=== PATIENT | male | born 1975 | race Caucasian/White ===

== ENCOUNTER 2019-11-04 06:56 | Day surgery (SDC) | payer BC, OTHER ==
[~2019-11-04 06:56] MED LIST: Lactated Ringers 1,000 ML IV SCH; Sodium Chloride 0.9% 10 ML Syringe FLUSH PRN
[2019-11-04] MEDS ORDERED: Ketorolac 30 MG/ML SDV IVPUSH ONE (06:57)
[2019-11-04] MEDS ORDERED: Midazolam 1 MG/ML 2 ML SDV IV ONE (06:57)
[2019-11-04] MEDS ORDERED: Lactated Ringers 1,000 ML IV ONE (06:57)
[2019-11-04] MEDS ORDERED: Propofol 200 MG/20 ML SDV IV ONE (06:57)
[2019-11-04] MEDS ORDERED: Succinylcholine 200 MG/10 ML MDV IV ONE (06:57)
[2019-11-04] MEDS ORDERED: fentaNYL 100 MCG/2 ML SDV IV ONE (06:57)
[2019-11-04] MEDS ORDERED: Glycopyrrolate 0.2 MG/ML 5 ML MDV IV ONE (06:57)
[2019-11-04] MEDS ORDERED: Dexamethasone 4 MG/ML 5 ML MDV IVPUSH ONE (06:57)
[2019-11-04] MEDS ORDERED: cefOXitin 1 GM Vial IV ONE (06:57)
[2019-11-04] MEDS ORDERED: Lidocaine 2% 5 ML SDV INJECT ONE (06:57)
[2019-11-04] MEDS ORDERED: Ondansetron 4 MG/2 ML SDV IVPUSH ONE (06:57)
[2019-11-04] MEDS ORDERED: Bupivacaine 0.5% 30 ML SDV ONE (08:21)
[2019-11-04] MEDS ORDERED: Lidocaine 1% with EPINEPHrine 1:100,000 20 ML MDV ONE (08:21)
[2019-11-04] MEDS ORDERED: Acetaminophen/HYDROcodone 325-5 MG Tab PO PRN (09:01)
--- NOTE | 2019-11-04 09:01 | PCM.OPNOTE ---
- General Post-Op/Procedure Note Date of Surgery/Procedure: 11/04/19 Operative Procedure(s): hemorrhoidectomy Findings: left lateral right post grade 2 hemorrhoids Pre Op Diagnosis: internal hemorrhoids Post-Op Diagnosis: left lateral right post grade 2 hemorrhoids Anesthesia Technique: General ET Tube, Local (8 ml 1 % lido with epi/0.5% buvipicaine) Primary Surgeon: Arias Quesada Anesthesia Provider: Valentino Soto Pathology: hemorrhoids Complications: None Condition: Good Free Text/Narrative:: see dictation
--- NOTE | 2019-11-04 12:58 | OR ---
DATE OF OPERATION: 11/04/2019 SURGEON: Arias Quesada MD PROCEDURE PERFORMED: Hemorrhoidectomy. PREOPERATIVE DIAGNOSIS: Grade 2 internal hemorrhoids. POSTOPERATIVE DIAGNOSIS: Grade 2 internal hemorrhoids. INDICATIONS FOR PROCEDURE: This is a 43-year-old white male who has had some issues with bleeding hemorrhoids. He has had several columns that have been refractory to banding. He has been offered and accepted a hemorrhoidectomy. INTRAOPERATIVE FINDINGS: Grade 2 hemorrhoids are noted in the left lateral and right posterior columns, and a total of 8 mL of 1:1 mixture of 1% lidocaine with epinephrine and 0.5% bupivacaine was used to infiltrate the bases of our hemorrhoids. DESCRIPTION OF OPERATION: After an excellent general anesthetic was administered with the endotracheal tube and the patient was placed in prone carline- knife position, his buttocks were then taped apart. He was prepped and draped in the usual sterile manner. Digital rectal exam was performed. No marked abnormality was noted. The anal speculum was inserted, and the anus was evaluated. This revealed grade 2 hemorrhoids in the left lateral and right posterior column positions with the left being much larger than the right. Our attention was first turned to the left lateral one. Base of the hemorrhoid tissue was infiltrated with a 1:1 mixture of 1% lidocaine with epinephrine and 0.5% bupivacaine. Underlying hemorrhoid was then grasped, and the skin and mucosa were incised with a #15 scalpel blade. Using Metzenbaum scissors, the hemorrhoid was dissected free from the underlying tissue with care being taken not to injure the underlying sphincter muscle. Coming out to the apex of the hemorrhoid column, this was clamped, hemorrhoid tissue was divided and then passed off the field. A suture-ligature of 2-0 Vicryl was then used to suture the stump closed. Clamp was removed and the mucosa was then approximated with a running 2-0 Vicryl with the underlying muscularis layer being incorporated in our stitch, and this was carried out into the anoderm and the suture was tied. Process was repeated for the right posterior column, again infiltrating with more local and making our incision with a #15 scalpel blade, again using the Metzenbaum scissors to dissect the hemorrhoid tissue free. Again, the apex was clamped and suture-ligated with a 2-0 Vicryl tie. The mucosa was then approximated incorporating the muscularis layer with a running 2-0 Vicryl. Area was irrigated and Avitene Gelfoam was then coated with bacitracin and inserted into the anus after demonstrating excellent hemostasis. Dressing was applied. The patient was taken to recovery room. Estimated blood loss was approximately 10 mL. /[id number] /MODL
== END 2019-11-04 11:15 | disposition home or self-care (01) ==
LOC: FB.SDS 06:56
PROVIDERS: ATTEND Surgery
DX: K64.1 Second degree hemorrhoids (principal); K21.9 Gastro-esophageal reflux disease without esophagitis; Z91.048 Other nonmedicinal substance allergy status; Z91.09 Other allergy status, other than to drugs and biological substances; Z79.899 Other long term (current) drug therapy; Z79.51 Long term (current) use of inhaled steroids
CPT/HCPCS: A9270-GY; J0330; J0694; J1100; J1885; J2001; J2250; J2405; J2704; J3010; J3490; J7120

== ENCOUNTER 2019-11-05 15:44 | Inpatient (IN) | payer OTHER ==
[2019-11-05] MEDS ORDERED: Naloxone 0.4 MG/ML SDV IVPUSH PRN (17:07)
[2019-11-05] MEDS: fentaNYL/Normal Saline 300 MCG/30 ML PCA Vial IV PRN (17:40)
[2019-11-05] MEDS: Sodium Chloride 0.9% 1,000 ML IV SCH (17:52)
[2019-11-05] MEDS: Sodium Chloride 0.9% 10 ML Syringe FLUSH PRN ×3 (18:00→20:58)
[2019-11-05] MEDS ORDERED: Ondansetron 4 MG/2 ML SDV IVPUSH PRN (18:17)
[2019-11-05] MEDS ORDERED: Albuterol 8 GM Inhaler INH PRN (19:24)
[2019-11-05] MEDS: Docusate Sodium 100 MG Cap PO SCH (20:15)
[2019-11-05] MEDS: Diazepam 5 MG Tab PO SCH (20:15)
[2019-11-05] MEDS: Ketorolac 30 MG/ML SDV IVPUSH PRN (20:58)
[2019-11-06] MEDS: fentaNYL/Normal Saline 300 MCG/30 ML PCA Vial IV PRN ×2 (02:02→12:18)
[2019-11-06] MEDS: Sodium Chloride 0.9% 1,000 ML IV SCH (06:59)
[2019-11-06] MEDS: Ketorolac 30 MG/ML SDV IVPUSH PRN ×2 (07:04→16:20)
[2019-11-06] MEDS ORDERED: FLUTICASONE PROPIONATE SCH (09:00)
[2019-11-06] MEDS: FLUoxetine 20 MG Cap PO SCH (09:39)
[2019-11-06] MEDS: Cetirizine 10 MG Tab PO SCH (09:39)
[2019-11-06] MEDS: Fluticasone Propionate Nasal Spray 16 GM Bottle NASBOTH SCH (09:40)
[2019-11-06] MEDS: Docusate Sodium 100 MG Cap PO SCH ×2 (09:40→21:51)
[2019-11-06] MEDS: Diazepam 5 MG Tab PO SCH ×3 (09:47→21:51)
--- NOTE | 2019-11-06 10:08 | PCM.SURGPN ---
- General Info Date of Service: 11/06/19 POD#: 2 Functional Status: Reports: Tolerating Diet - Review of Systems Pulmonary: Reports: No Symptoms Cardiovascular: Reports: No Symptoms - Patient Data Vitals - Most Recent: Last Vital Signs Temp 98.0 F 11/06/19 03:00 Pulse 45 L 11/06/19 03:00 Resp 16 11/06/19 03:00 BP 110/62 11/06/19 03:00 Pulse Ox 98 11/06/19 03:00 Weight - Most Recent: 130.589 kg I&O - Last 24 Hours: Intake & Output 11/05/19 11/06/19 11/06/19 22:59 06:59 14:59 Intake Total 1563 Output Total 2250 1600 Balance -687 -1600 Med Orders - Current: Current Medications Albuterol (Ventolin Hfa) 0 gm INH Q4H PRN PRN Reason: Shortness of Breath Cetirizine HCl (Zyrtec) 10 mg PO DAILY [facility] Last Admin: 11/06/19 09:39 Dose: 10 mg Diazepam (Valium.) 5 mg PO TID [facility] Last Admin: 11/06/19 09:47 Dose: 5 mg Docusate Sodium (Colace) 100 mg PO BID [facility] Last Admin: 11/06/19 09:40 Dose: 100 mg Fentanyl Citrate (Fentanyl In Ns 300 Mcg/30 Ml Lithopone Mill Worker) 0 mcg IV ASDIRECTED PRN; Protocol PRN Reason: Pain Last Admin: 11/06/19 02:02 Dose: 300 mcg Fexofenadine HCl (Peyton) 60 mg PO DAILY [facility] Last Admin: 11/06/19 09:38 Dose: 60 mg Fluoxetine HCl (Prozac) 60 mg PO DAILY [facility] Last Admin: 11/06/19 09:39 Dose: 60 mg Fluticasone Propionate (Flonase) 0 gm NASBOTH DAILY [facility] Last Admin: 11/06/19 09:40 Dose: 2 inhalation Sodium Chloride (Normal Saline) 1,000 mls @ 75 mls/hr IV ASDIRECTED [facility] Last Admin: 11/06/19 06:59 Dose: 75 mls/hr Ketorolac Tromethamine (Toradol) 30 mg IVPUSH Q8H PRN PRN Reason: Pain Stop: 11/10/19 17:11 Last Admin: 11/06/19 07:04 Dose: 30 mg Naloxone HCl (Narcan) 0.4 mg IVPUSH Q2M PRN PRN Reason: Respiratory Distress Ondansetron HCl (Zofran) 4 mg IVPUSH Q4H PRN PRN Reason: Nausea/Vomiting Sodium Chloride (Saline Flush) 10 ml FLUSH ASDIRECTED PRN PRN Reason: Keep Vein Open Last Admin: 11/05/19 20:58 Dose: 10 ml Discontinued Medications Non-Formulary Medication (Fluticasone Propionate [Flonase]) 2 spray .XX DAILY [facility] - Exam Wound/Incisions: Drainage Lungs: Clear to Auscultation, Normal Respiratory Effort Cardiovascular: Regular Rate, Regular Rhythm GI/Abdominal Exam: Normal Bowel Sounds, Soft Skin: Warm, Dry, Intact Sepsis Event Note - Evaluation Sepsis Screening Result: No Definite Risk - Focused Exam Vital Signs: Vital Signs Temp Pulse Resp BP Pulse Ox 11/06/19 03:00 98.0 F 45 L 16 110/62 98 Date Exam was Performed: 11/06/19 Time Exam was Performed: 10:05 - Problem List & Annotations (1) Post-op pain SNOMED Code(s): 773411571 Code(s): G89.18 - OTHER ACUTE POSTPROCEDURAL PAIN Status: Acute Current Visit: Yes - Problem List Review Problem List Initiated/Reviewed/Updated: Yes - My Orders Last 24 Hours: Active Orders 24 hr Category Date Time Status Patient Status [ADT] Routine ADT 11/05/19 17:05 Active Antiembolic Devices [RC] .Routine Care 11/05/19 17:05 Active Cardiac Monitoring [RC] .As Directed Care 11/05/19 17:07 Active Communication Order [RC] STAT Care 11/05/19 17:07 Active Coley Catheter Insertion [Insert Urinary Catheter] [OM. Care 11/05/19 17:15 Ordered PC] Q24H Notify Provider [RC] PRN Care 11/05/19 17:07 Active DEBLOCKER Record [RC] PER UNIT ROUTINE Care 11/05/19 17:07 Active Pulse Oximetry [RC] CONTINUOUS Care 11/05/19 17:07 Active Pulse Oximetry [RC] PRN Care 11/05/19 17:05 Active Urinary Catheter Assessment [RC] QSHIFT Care 11/05/19 17:09 Active VTE/DVT Education [RC] Click to Edit Care 11/05/19 17:05 Active Vital Signs [RC] Q4H Care 11/05/19 17:05 Active Regular Diet [DIET] Diet 11/05/19 Dinner Active Albuterol [Ventolin HFA] Med 11/05/19 19:24 Active 0 gm INH Q4H PRN Cetirizine [ZyrTEC] Med 11/06/19 09:00 Active 10 mg PO DAILY Docusate Sodium [Colace] Med 11/05/19 21:00 Active 100 mg PO BID FLUoxetine [PROzac] Med 11/06/19 09:00 Active 60 mg PO DAILY Fexofenadine [Peyton] Med 11/06/19 09:00 Active 60 mg PO DAILY Fluticasone Propionate [Flonase] Med 11/06/19 09:00 Active 0 gm NASBOTH DAILY Ketorolac [Toradol] Med 11/05/19 17:11 Active 30 mg IVPUSH Q8H PRN Naloxone [Narcan] Med 11/05/19 17:07 Active 0.4 mg IVPUSH Q2M PRN Ondansetron [Zofran] Med 11/05/19 18:17 Active 4 mg IVPUSH Q4H PRN Sodium Chloride 0.9% [Normal Saline] 1,000 ml Med 11/05/19 17:30 Active IV ASDIRECTED Sodium Chloride 0.9% [Saline Flush] Med 11/05/19 17:50 Active 10 ml FLUSH ASDIRECTED PRN diazePAM [Valium] Med 11/05/19 21:00 Active 5 mg PO TID fentaNYL/Normal Saline [fentaNYL in NS 300 MCG/30 ML Med 11/05/19 17:07 Active DEBLOCKER] See Protocol IV ASDIRECTED PRN DVT/VTE Prophylaxis Reflex [OM.PC] Per Unit Routine Oth 11/05/19 17:05 Ordered Medication Discontinuation Instructions [OM.PC] Stat Oth 11/05/19 17:07 Ordered Sitz Bath [OM.PC] Routine Oth 11/05/19 17:10 Ordered Resuscitation Status Routine Resus Stat 11/05/19 17:04 Ordered Medication Orders Albuterol (Ventolin Hfa) 0 gm INH Q4H PRN PRN Reason: Shortness of Breath Cetirizine HCl (Zyrtec) 10 mg PO DAILY [facility] Last Admin: 11/06/19 09:39 Dose: 10 mg Diazepam (Valium.) 5 mg PO TID [facility] Last Admin: 11/06/19 09:47 Dose: 5 mg Admin: 11/05/19 20:15 Dose: 5 mg Docusate Sodium (Colace) 100 mg PO BID [facility] Last Admin: 11/06/19 09:40 Dose: 100 mg Admin: 11/05/19 20:15 Dose: 100 mg Fentanyl Citrate (Fentanyl In Ns 300 Mcg/30 Ml Lithopone Mill Worker) 0 mcg IV ASDIRECTED PRN; Protocol PRN Reason: Pain Last Admin: 11/06/19 02:02 Dose: 300 mcg Admin: 11/05/19 17:40 Dose: 300 mcg Fexofenadine HCl (Peyton) 60 mg PO DAILY [facility] Last Admin: 11/06/19 09:38 Dose: 60 mg Fluoxetine HCl (Prozac) 60 mg PO DAILY [facility] Last Admin: 11/06/19 09:39 Dose: 60 mg Fluticasone Propionate (Flonase) 0 gm NASBOTH DAILY [facility] Last Admin: 11/06/19 09:40 Dose: 2 inhalation Sodium Chloride (Normal Saline) 1,000 mls @ 75 mls/hr IV ASDIRECTED [facility] Last Admin: 11/06/19 06:59 Dose: 75 mls/hr Infusion: 11/06/19 06:59 Dose: 75 mls/hr Admin: 11/05/19 17:52 Dose: 75 mls/hr Ketorolac Tromethamine (Toradol) 30 mg IVPUSH Q8H PRN PRN Reason: Pain Stop: 11/10/19 17:11 Last Admin: 11/06/19 07:04 Dose: 30 mg Admin: 11/05/19 20:58 Dose: 30 mg Naloxone HCl (Narcan) 0.4 mg IVPUSH Q2M PRN PRN Reason: Respiratory Distress Ondansetron HCl (Zofran) 4 mg IVPUSH Q4H PRN PRN Reason: Nausea/Vomiting Sodium Chloride (Saline Flush) 10 ml FLUSH ASDIRECTED PRN PRN Reason: Keep Vein Open Last Admin: 11/05/19 20:58 Dose: 10 ml Admin: 11/05/19 18:25 Dose: 10 ml Admin: 11/05/19 18:00 Dose: 10 ml - Assessment Assessment (Free Text/Narrative):: stable exam - Plan Plan (Free Text/Narrative):: will continue coley will dc tele Pulse ox checks with vitals. ambulate decrease IVF rate
[2019-11-06] MEDS: Sodium Chloride 0.9% 10 ML Syringe FLUSH PRN (16:24)
[2019-11-07] MEDS: Ketorolac 30 MG/ML SDV IVPUSH PRN ×2 (01:08→15:35)
[2019-11-07] MEDS: Sodium Chloride 0.9% 10 ML Syringe FLUSH PRN (01:09)
[2019-11-07] MEDS: fentaNYL/Normal Saline 300 MCG/30 ML PCA Vial IV PRN ×2 (01:13→13:17)
--- NOTE | 2019-11-07 07:22 | PCM.SURGPN ---
- General Info Date of Service: 11/07/19 POD#: 3 Functional Status: Reports: Pain Controlled, Tolerating Diet, Ambulating - Review of Systems General: Reports: Other (pain is getting better is tolerable ) - Patient Data Vitals - Most Recent: Last Vital Signs Temp 97.7 F 11/07/19 04:00 Pulse 58 L 11/07/19 04:00 Resp 16 11/07/19 04:00 BP 130/82 11/07/19 04:00 Pulse Ox 97 11/07/19 04:00 Weight - Most Recent: 130.589 kg I&O - Last 24 Hours: Intake & Output 11/06/19 11/07/19 11/07/19 22:59 06:59 14:59 Intake Total 280 1550 Output Total 1100 1700 Balance -820 -150 Med Orders - Current: Current Medications Albuterol (Ventolin Hfa) 0 gm INH Q4H PRN PRN Reason: Shortness of Breath Cetirizine HCl (Zyrtec) 10 mg PO DAILY [facility] Last Admin: 11/06/19 09:39 Dose: 10 mg Diazepam (Valium.) 5 mg PO TID [facility] Last Admin: 11/06/19 21:51 Dose: 5 mg Docusate Sodium (Colace) 100 mg PO BID [facility] Last Admin: 11/06/19 21:51 Dose: 100 mg Fentanyl Citrate (Fentanyl In Ns 300 Mcg/30 Ml Quality Process Engineer) 0 mcg IV ASDIRECTED PRN; Protocol PRN Reason: Pain Last Admin: 11/07/19 01:13 Dose: 300 mcg Fexofenadine HCl (Peyton) 60 mg PO DAILY [facility] Last Admin: 11/06/19 09:38 Dose: 60 mg Fluoxetine HCl (Prozac) 60 mg PO DAILY [facility] Last Admin: 11/06/19 09:39 Dose: 60 mg Fluticasone Propionate (Flonase) 0 gm NASBOTH DAILY [facility] Last Admin: 11/06/19 09:40 Dose: 2 inhalation Sodium Chloride (Normal Saline) 1,000 mls @ 30 mls/hr IV ASDIRECTED [facility] Last Admin: 11/06/19 06:59 Dose: 75 mls/hr Ketorolac Tromethamine (Toradol) 30 mg IVPUSH Q8H PRN PRN Reason: Pain Stop: 11/10/19 17:11 Last Admin: 11/07/19 01:08 Dose: 30 mg Naloxone HCl (Narcan) 0.4 mg IVPUSH Q2M PRN PRN Reason: Respiratory Distress Ondansetron HCl (Zofran) 4 mg IVPUSH Q4H PRN PRN Reason: Nausea/Vomiting Sodium Chloride (Saline Flush) 10 ml FLUSH ASDIRECTED PRN PRN Reason: Keep Vein Open Last Admin: 11/07/19 01:09 Dose: 10 ml Discontinued Medications Non-Formulary Medication (Fluticasone Propionate [Flonase]) 2 spray .XX DAILY [facility] - Exam Lungs: Clear to Auscultation, Normal Respiratory Effort Cardiovascular: Regular Rate GI/Abdominal Exam: Normal Bowel Sounds, Soft, Non-Tender Skin: Warm, Dry, Intact Sepsis Event Note - Evaluation Sepsis Screening Result: No Definite Risk - Focused Exam Vital Signs: Vital Signs Temp Pulse Resp BP Pulse Ox Pulse Ox 11/07/19 04:00 97.7 F 58 L 16 130/82 97 11/07/19 01:00 97.6 F 56 L 16 134/88 99 11/06/19 20:00 97.5 F 54 L 16 120/73 98 98 Date Exam was Performed: 11/07/19 Time Exam was Performed: 07:19 - Problem List & Annotations (1) Post-op pain SNOMED Code(s): 147512856 Code(s): G89.18 - OTHER ACUTE POSTPROCEDURAL PAIN Status: Acute Current Visit: Yes - Problem List Review Problem List Initiated/Reviewed/Updated: Yes - My Orders Last 24 Hours: Active Orders 24 hr Category Date Time Status Ambulate [RC] Q2HWA Care 11/06/19 10:10 Active Communication Order [RC] ASDIRECTED Care 11/07/19 07:17 Ordered Remove Coley Catheter [Urinary Catheter Removal] [] Care 11/07/19 07:14 Ordered Per Unit Routine Acetaminophen/HYDROcodone [[place] 325-5 MG] Med 11/07/19 07:16 Ordered 2 tab PO Q4H PRN Cetirizine [ZyrTEC] Med 11/06/19 09:00 Active 10 mg PO DAILY FLUoxetine [PROzac] Med 11/06/19 09:00 Active 60 mg PO DAILY Fexofenadine [Peyton] Med 11/06/19 09:00 Active 60 mg PO DAILY Fluticasone Propionate [Flonase] Med 11/06/19 09:00 Active 0 gm NASBOTH DAILY Medication Orders Albuterol (Ventolin Hfa) 0 gm INH Q4H PRN PRN Reason: Shortness of Breath Cetirizine HCl (Zyrtec) 10 mg PO DAILY [facility] Last Admin: 11/06/19 09:39 Dose: 10 mg Diazepam (Valium.) 5 mg PO TID [facility] Last Admin: 11/06/19 21:51 Dose: 5 mg Admin: 11/06/19 13:54 Dose: 5 mg Admin: 11/06/19 09:47 Dose: 5 mg Admin: 11/05/19 20:15 Dose: 5 mg Docusate Sodium (Colace) 100 mg PO BID [facility] Last Admin: 11/06/19 21:51 Dose: 100 mg Admin: 11/06/19 09:40 Dose: 100 mg Admin: 11/05/19 20:15 Dose: 100 mg Fentanyl Citrate (Fentanyl In Ns 300 Mcg/30 Ml Quality Process Engineer) 0 mcg IV ASDIRECTED PRN; Protocol PRN Reason: Pain Last Admin: 11/07/19 01:13 Dose: 300 mcg Admin: 11/06/19 12:18 Dose: 300 mcg Admin: 11/06/19 02:02 Dose: 300 mcg Admin: 11/05/19 17:40 Dose: 300 mcg Fexofenadine HCl (Peyton) 60 mg PO DAILY [facility] Last Admin: 11/06/19 09:38 Dose: 60 mg Fluoxetine HCl (Prozac) 60 mg PO DAILY [facility] Last Admin: 11/06/19 09:39 Dose: 60 mg Fluticasone Propionate (Flonase) 0 gm NASBOTH DAILY [facility] Last Admin: 11/06/19 09:40 Dose: 2 inhalation Sodium Chloride (Normal Saline) 1,000 mls @ 30 mls/hr IV ASDIRECTED [facility] Last Admin: 11/06/19 06:59 Dose: 75 mls/hr Infusion: 11/06/19 06:59 Dose: 75 mls/hr Admin: 11/05/19 17:52 Dose: 75 mls/hr Ketorolac Tromethamine (Toradol) 30 mg IVPUSH Q8H PRN PRN Reason: Pain Stop: 11/10/19 17:11 Last Admin: 11/07/19 01:08 Dose: 30 mg Admin: 11/06/19 16:20 Dose: 30 mg Admin: 11/06/19 07:04 Dose: 30 mg Admin: 11/05/19 20:58 Dose: 30 mg Naloxone HCl (Narcan) 0.4 mg IVPUSH Q2M PRN PRN Reason: Respiratory Distress Ondansetron HCl (Zofran) 4 mg IVPUSH Q4H PRN PRN Reason: Nausea/Vomiting Sodium Chloride (Saline Flush) 10 ml FLUSH ASDIRECTED PRN PRN Reason: Keep Vein Open Last Admin: 11/07/19 01:09 Dose: 10 ml Admin: 11/06/19 16:24 Dose: 10 ml Admin: 11/05/19 20:58 Dose: 10 ml Admin: 11/05/19 18:25 Dose: 10 ml Admin: 11/05/19 18:00 Dose: 10 ml - Assessment Assessment (Free Text/Narrative):: continues to improve - Plan Plan (Free Text/Narrative):: will d/c coley d/c basal rate on the fentanyl if tolerates will stop and start norco.
[2019-11-07] MEDS: Sodium Chloride 0.9% 1,000 ML IV SCH (07:37)
[2019-11-07] MEDS: Fluticasone Propionate Nasal Spray 16 GM Bottle NASBOTH SCH (08:49)
[2019-11-07] MEDS: Cetirizine 10 MG Tab PO SCH (08:49)
[2019-11-07] MEDS: FLUoxetine 20 MG Cap PO SCH (08:49)
[2019-11-07] MEDS: Docusate Sodium 100 MG Cap PO SCH ×2 (08:49→21:14)
[2019-11-07] MEDS: Diazepam 5 MG Tab PO SCH ×3 (08:52→21:13)
[2019-11-07] MEDS: Acetaminophen/HYDROcodone 325-5 MG Tab PO PRN ×2 (09:57→19:53)
[2019-11-07] MEDS ORDERED: Morphine 2 MG/ML Syringe IVPUSH PRN (15:46)
--- NOTE | 2019-11-07 15:49 | PCM.SN ---
- Free Text/Narrative Note: Pt still not demonstrating adequate pain control. 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 hydrocodone, Morphine for breakthrough pain.
[2019-11-07] MEDS ORDERED: Polyethylene Glycol 3350 Powder 17 GM Packet PO ONE (18:34)
[2019-11-08] MEDS: Ketorolac 30 MG/ML SDV IVPUSH PRN ×2 (02:11→10:14)
[2019-11-08] MEDS: Sodium Chloride 0.9% 10 ML Syringe FLUSH PRN ×2 (02:12→10:18)
[2019-11-08] MEDS: Acetaminophen/HYDROcodone 325-5 MG Tab PO PRN ×2 (04:20→09:16)
--- NOTE | 2019-11-08 09:09 | PCM.SURGPN ---
- General Info Date of Service: 11/08/19 POD#: 4 Functional Status: Reports: Pain Controlled, Tolerating Diet, Ambulating, Other (had a bowel movment ) - Review of Systems General: Reports: No Symptoms Gastrointestinal: Reports: Hematochezia (with the bm not unexpected.) - Patient Data Vitals - Most Recent: Last Vital Signs Temp 97.7 F 11/08/19 04:30 Pulse 58 L 11/08/19 04:30 Resp 20 11/08/19 04:30 BP 134/94 H 11/08/19 04:30 Pulse Ox 97 11/08/19 04:30 Weight - Most Recent: 130.589 kg I&O - Last 24 Hours: Intake & Output 11/07/19 11/08/19 11/08/19 22:59 06:59 14:59 Intake Total 500 500 Balance 500 500 Med Orders - Current: Current Medications Hydrocodone Bitart/Acetaminophen (Savage 325-5 Mg) 2 tab PO Q4H PRN PRN Reason: Pain Last Admin: 11/08/19 04:20 Dose: 2 tab Albuterol (Ventolin Hfa) 0 gm INH Q4H PRN PRN Reason: Shortness of Breath Cetirizine HCl (Zyrtec) 10 mg PO DAILY [facility] Last Admin: 11/07/19 08:49 Dose: 10 mg Diazepam (Valium.) 5 mg PO TID [facility] Last Admin: 11/07/19 21:13 Dose: 5 mg Docusate Sodium (Colace) 100 mg PO BID [facility] Last Admin: 11/07/19 21:14 Dose: Not Given Fexofenadine HCl (Peyton) 60 mg PO DAILY [facility] Last Admin: 11/07/19 08:49 Dose: 60 mg Fluoxetine HCl (Prozac) 60 mg PO DAILY [facility] Last Admin: 11/07/19 08:49 Dose: 60 mg Fluticasone Propionate (Flonase) 0 gm NASBOTH DAILY [facility] Last Admin: 11/07/19 08:49 Dose: 2 inhalation Ketorolac Tromethamine (Toradol) 30 mg IVPUSH Q8H PRN PRN Reason: Pain Stop: 11/10/19 17:11 Last Admin: 11/08/19 02:11 Dose: 30 mg Morphine Sulfate (Morphine) 2 mg IVPUSH Q2H PRN PRN Reason: Pain Ondansetron HCl (Zofran) 4 mg IVPUSH Q4H PRN PRN Reason: Nausea/Vomiting Sodium Chloride (Saline Flush) 10 ml FLUSH ASDIRECTED PRN PRN Reason: Keep Vein Open Last Admin: 11/08/19 02:12 Dose: 10 ml Discontinued Medications Fentanyl Citrate (Fentanyl In Ns 300 Mcg/30 Ml [employer]) 0 mcg IV ASDIRECTED PRN; Protocol PRN Reason: Pain Last Admin: 11/07/19 13:17 Dose: 300 mcg Sodium Chloride (Normal Saline) 1,000 mls @ 30 mls/hr IV ASDIRECTED [facility] Last Infusion: 11/07/19 07:37 Dose: 30 mls/hr Naloxone HCl (Narcan) 0.4 mg IVPUSH Q2M PRN PRN Reason: Respiratory Distress Non-Formulary Medication (Fluticasone Propionate [Flonase]) 2 spray .XX DAILY [facility] Polyethylene Glycol (Miralax) 17 gm PO ONETIME ONE Stop: 11/07/19 18:35 Last Admin: 11/07/19 19:02 Dose: 17 gm - Exam Wound/Incisions: Drainage (spotting with bm ) Lungs: Clear to Auscultation, Normal Respiratory Effort Cardiovascular: Regular Rate, Regular Rhythm GI/Abdominal Exam: Normal Bowel Sounds, Soft, Non-Tender Skin: Warm, Dry, Intact Sepsis Event Note - Evaluation Sepsis Screening Result: No Definite Risk - Focused Exam Vital Signs: Vital Signs Temp Pulse Resp BP Pulse Ox 11/08/19 04:30 97.7 F 58 L 20 134/94 H 97 11/08/19 02:00 97.7 F 60 20 137/83 98 Date Exam was Performed: 11/08/19 Time Exam was Performed: 09:07 - Problem List & Annotations (1) Post-op pain SNOMED Code(s): 013786245 Code(s): G89.18 - OTHER ACUTE POSTPROCEDURAL PAIN Status: Acute Current Visit: Yes (2) Postprocedural urinary retention SNOMED Code(s): 34541710471455761 Code(s): N99.89 - OTH POSTPROCEDURAL COMPLICATIONS AND DISORDERS OF SYS; R33.8 - OTHER RETENTION OF URINE Status: Resolved Current Visit: Yes - Problem List Review Problem List Initiated/Reviewed/Updated: Yes - My Orders Last 24 Hours: Active Orders 24 hr Category Date Time Status Admission Status [Patient Status] [ADT] Routine ADT 11/07/19 15:44 Active Morphine Med 11/07/19 15:46 Active 2 mg IVPUSH Q2H PRN Convert IV to Saline Lock [OM.PC] Routine Oth 11/07/19 15:47 Ordered Medication Orders Hydrocodone Bitart/Acetaminophen (Savage 325-5 Mg) 2 tab PO Q4H PRN PRN Reason: Pain Last Admin: 11/08/19 04:20 Dose: 2 tab Admin: 11/07/19 19:53 Dose: 2 tab Admin: 11/07/19 09:57 Dose: 2 tab Albuterol (Ventolin Hfa) 0 gm INH Q4H PRN PRN Reason: Shortness of Breath Cetirizine HCl (Zyrtec) 10 mg PO DAILY [facility] Last Admin: 11/07/19 08:49 Dose: 10 mg Admin: 11/06/19 09:39 Dose: 10 mg Diazepam (Valium.) 5 mg PO TID [facility] Last Admin: 11/07/19 21:13 Dose: 5 mg Admin: 11/07/19 14:40 Dose: 5 mg Admin: 11/07/19 08:52 Dose: 5 mg Admin: 11/06/19 21:51 Dose: 5 mg Admin: 11/06/19 13:54 Dose: 5 mg Admin: 11/06/19 09:47 Dose: 5 mg Admin: 11/05/19 20:15 Dose: 5 mg Docusate Sodium (Colace) 100 mg PO BID [facility] Last Admin: 11/07/19 21:14 Dose: Not Given Admin: 11/07/19 08:49 Dose: 100 mg Admin: 11/06/19 21:51 Dose: 100 mg Admin: 11/06/19 09:40 Dose: 100 mg Admin: 11/05/19 20:15 Dose: 100 mg Fexofenadine HCl (Peyton) 60 mg PO DAILY [facility] Last Admin: 11/07/19 08:49 Dose: 60 mg Admin: 11/06/19 09:38 Dose: 60 mg Fluoxetine HCl (Prozac) 60 mg PO DAILY [facility] Last Admin: 11/07/19 08:49 Dose: 60 mg Admin: 11/06/19 09:39 Dose: 60 mg Fluticasone Propionate (Flonase) 0 gm NASBOTH DAILY [facility] Last Admin: 11/07/19 08:49 Dose: 2 inhalation Admin: 11/06/19 09:40 Dose: 2 inhalation Ketorolac Tromethamine (Toradol) 30 mg IVPUSH Q8H PRN PRN Reason: Pain Stop: 11/10/19 17:11 Last Admin: 11/08/19 02:11 Dose: 30 mg Admin: 11/07/19 15:35 Dose: 30 mg Admin: 11/07/19 01:08 Dose: 30 mg Admin: 11/06/19 16:20 Dose: 30 mg Admin: 11/06/19 07:04 Dose: 30 mg Admin: 11/05/19 20:58 Dose: 30 mg Morphine Sulfate (Morphine) 2 mg IVPUSH Q2H PRN PRN Reason: Pain Ondansetron HCl (Zofran) 4 mg IVPUSH Q4H PRN PRN Reason: Nausea/Vomiting Sodium Chloride (Saline Flush) 10 ml FLUSH ASDIRECTED PRN PRN Reason: Keep Vein Open Last Admin: 11/08/19 02:12 Dose: 10 ml Admin: 11/07/19 01:09 Dose: 10 ml Admin: 11/06/19 16:24 Dose: 10 ml Admin: 11/05/19 20:58 Dose: 10 ml Admin: 11/05/19 18:25 Dose: 10 ml Admin: 11/05/19 18:00 Dose: 10 ml - Assessment Assessment (Free Text/Narrative):: ready for discharge - Plan Plan (Free Text/Narrative):: see dc plan
[2019-11-08] MEDS: Diazepam 5 MG Tab PO SCH (09:16)
[2019-11-08] MEDS: Cetirizine 10 MG Tab PO SCH (09:16)
[2019-11-08] MEDS: Docusate Sodium 100 MG Cap PO SCH (09:16)
[2019-11-08] MEDS: Fluticasone Propionate Nasal Spray 16 GM Bottle NASBOTH SCH (09:16)
[2019-11-08] MEDS: FLUoxetine 20 MG Cap PO SCH (09:16)
--- NOTE | 2019-11-08 09:25 | PCM.DCSUM1 ---
Discharge Summary - Hospital Course Free Text/Narrative:: Pt underwent a hemorrhoidectomy earlier this week. 24 hr later had to be admitted OC for post operative pain and urinary retention. He had a coley catheter placed which was removed without incidence approx 36 hrs later. 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 However did require an additional over night stay/admission until we were able to control the pt's pain with oral medication. He did have a bowel movement during this time. He is ready for discharge. - Discharge Data Discharge Date: 11/08/19 Discharge Disposition: Home, Self-Care 01 Condition: Good - Referral to Home Health Primary Care Physician: Arias Quesada MD - Discharge Diagnosis/Problem(s) (1) Post-op pain SNOMED Code(s): 323891019 ICD Code: G89.18 - OTHER ACUTE POSTPROCEDURAL PAIN Status: Acute Current Visit: Yes (2) Postprocedural urinary retention SNOMED Code(s): 00550774568011485 ICD Code: N99.89 - OTH POSTPROCEDURAL COMPLICATIONS AND DISORDERS OF SYS; R33.8 - OTHER RETENTION OF URINE Status: Resolved Current Visit: Yes - Patient Instructions Diet: Usual Diet as Tolerated Activity: As Tolerated Driving: Do Not Drive (for 3 days ) Showering/Bathing, Other: sitz baths and showering Notify Provider of: Fever, Increased Pain, Swelling and Redness - Discharge Plan *PRESCRIPTION DRUG MONITORING PROGRAM REVIEWED*: Yes *COPY OF PRESCRIPTION DRUG MONITORING REPORT IN PATIENT KATE: No Prescriptions/Med Rec: Acetaminophen/HYDROcodone [[place] 325-5 MG] 2 tab PO Q4H PRN #20 tablet PRN Reason: Pain Celecoxib [CeleBREX] 200 mg PO BID #10 cap diazePAM [Valium] 5 mg PO TID PRN #9 tablet PRN Reason: Spasms Home Medications: Home Meds Albuterol Sulfate [Albuterol Sulfate Hfa] 2 puff IH Q4H PRN 11/03/19 [History] Cetirizine [ZyrTEC] 10 mg PO DAILY 11/03/19 [History] FLUoxetine HCl [Prozac] 60 mg PO DAILY 11/03/19 [History] Fluticasone Propionate [Flonase] 2 spray .XX DAILY 11/03/19 [History] Omeprazole Magnesium [Prilosec Otc] 40 mg PO DAILY 11/03/19 [History] Acetaminophen/HYDROcodone [[place] 325-5 MG] 1 - 2 tab PO Q6H PRN #20 tab [Rx] Docusate Sodium [Colace] 100 mg PO BID #20 capsule 11/04/19 [Rx] Fexofenadine HCl [Peyton Allergy] 60 mg PO DAILY 11/04/19 [History] Hydrocodone/Acetaminophen [Hydrocodon-Acetaminophen 5-325] 1 each PO Q6H PRN [History] Hydrocodone/Acetaminophen [Hydrocodon-Acetaminophen 5-325] 2 tab PO Q6H [History] Acetaminophen/HYDROcodone [[place] 325-5 MG] 2 tab PO Q4H PRN #20 tablet 11/08/19 [Rx] Celecoxib [CeleBREX] 200 mg PO BID #10 cap 11/08/19 [Rx] diazePAM [Valium] 5 mg PO TID PRN #9 tablet 11/08/19 [Rx] Patient Handouts: Surgical Procedures for Hemorrhoids, Care After, How to Take a Sitz Bath Referrals: Arias Quesada MD [Primary Care Provider] - (if does not have one this week, then can come week of 16 November) - Discharge Summary/Plan Comment DC Time >30 min.: No Discharge Summary/Plan Comment: see dc sheet - Patient Data Vitals - Most Recent: Last Vital Signs Temp 97.7 F 11/08/19 04:30 Pulse 58 L 11/08/19 04:30 Resp 20 11/08/19 04:30 BP 134/94 H 11/08/19 04:30 Pulse Ox 97 11/08/19 04:30 Weight - Most Recent: 130.589 kg I&O - Last 24 hours: Intake & Output 11/07/19 11/08/19 11/08/19 22:59 06:59 14:59 Intake Total 500 500 Balance 500 500 Med Orders - Current: Current Medications Hydrocodone Bitart/Acetaminophen ([place] 325-5 Mg) 2 tab PO Q4H PRN PRN Reason: Pain Last Admin: 11/08/19 09:16 Dose: 2 tab Albuterol (Ventolin Hfa) 0 gm INH Q4H PRN PRN Reason: Shortness of Breath Cetirizine HCl (Zyrtec) 10 mg PO DAILY [facility] Last Admin: 11/08/19 09:16 Dose: 10 mg Diazepam (Valium.) 5 mg PO TID [facility] Last Admin: 11/08/19 09:16 Dose: 5 mg Docusate Sodium (Colace) 100 mg PO BID [facility] Last Admin: 11/08/19 09:16 Dose: 100 mg Fexofenadine HCl (Peyton) 60 mg PO DAILY [facility] Last Admin: 11/08/19 09:16 Dose: 60 mg Fluoxetine HCl (Prozac) 60 mg PO DAILY [facility] Last Admin: 11/08/19 09:16 Dose: 60 mg Fluticasone Propionate (Flonase) 0 gm NASBOTH DAILY [facility] Last Admin: 11/08/19 09:16 Dose: 2 inhalation Ketorolac Tromethamine (Toradol) 30 mg IVPUSH Q8H PRN PRN Reason: Pain Stop: 11/10/19 17:11 Last Admin: 11/08/19 02:11 Dose: 30 mg Morphine Sulfate (Morphine) 2 mg IVPUSH Q2H PRN PRN Reason: Pain Ondansetron HCl (Zofran) 4 mg IVPUSH Q4H PRN PRN Reason: Nausea/Vomiting Sodium Chloride (Saline Flush) 10 ml FLUSH ASDIRECTED PRN PRN Reason: Keep Vein Open Last Admin: 11/08/19 02:12 Dose: 10 ml Discontinued Medications Fentanyl Citrate (Fentanyl In Ns 300 Mcg/30 Ml Rider Ticket Worker) 0 mcg IV ASDIRECTED PRN; Protocol PRN Reason: Pain Last Admin: 11/07/19 13:17 Dose: 300 mcg Sodium Chloride (Normal Saline) 1,000 mls @ 30 mls/hr IV ASDIRECTED [facility] Last Infusion: 11/07/19 07:37 Dose: 30 mls/hr Naloxone HCl (Narcan) 0.4 mg IVPUSH Q2M PRN PRN Reason: Respiratory Distress Non-Formulary Medication (Fluticasone Propionate [Flonase]) 2 spray .XX DAILY [facility] Polyethylene Glycol (Miralax) 17 gm PO ONETIME ONE Stop: 11/07/19 18:35 Last Admin: 11/07/19 19:02 Dose: 17 gm
== END 2019-11-08 10:22 | disposition home or self-care (01) | DRG 948 ==
LOC: FB.MS 15:44 → OBSVTOIN 11-07 15:44
PROVIDERS: ADMIT Surgery; ATTEND Surgery
DX: G89.18 Other acute postprocedural pain (principal); N99.89 Other postprocedural complications and disorders of genitourinary system; Z98.890 Other specified postprocedural states; J30.9 Allergic rhinitis, unspecified; E78.5 Hyperlipidemia, unspecified; K21.9 Gastro-esophageal reflux disease without esophagitis; H93.299 Other abnormal auditory perceptions, unspecified ear; Z91.048 Other nonmedicinal substance allergy status; Z79.899 Other long term (current) drug therapy
CPT/HCPCS: 94760; 96361; 96374; 96376; A9270-GY; G0378; G0379; J1885; J3010; J7030

== ENCOUNTER 2020-03-29 08:58 | Day surgery (SDC) | payer BC, OTHER ==
[2020-03-29] MEDS ORDERED: Glycopyrrolate 0.2 MG/ML 5 ML MDV IV ONE (08:59)
[2020-03-29] MEDS ORDERED: Midazolam 1 MG/ML 2 ML SDV IV ONE (08:59)
[2020-03-29] MEDS ORDERED: Ketorolac 30 MG/ML SDV IVPUSH ONE (08:59)
[2020-03-29] MEDS ORDERED: Ondansetron 4 MG/2 ML SDV IVPUSH ONE (08:59)
[2020-03-29] MEDS ORDERED: Propofol 200 MG/20 ML SDV IV ONE (08:59)
[2020-03-29] MEDS ORDERED: fentaNYL 100 MCG/2 ML SDV IV ONE (08:59)
[2020-03-29] MEDS ORDERED: Lactated Ringers 1,000 ML IV ONE (08:59)
[2020-03-29] MEDS ORDERED: Rocuronium 100 MG/10 ML MDV IV ONE (08:59)
[2020-03-29] MEDS ORDERED: Dexamethasone 4 MG/ML 5 ML MDV IVPUSH ONE (08:59)
[2020-03-29] MEDS ORDERED: Sodium Chloride 0.9% 10 ML Syringe FLUSH PRN (09:00)
[2020-03-29] MEDS: Lactated Ringers 1,000 ML IV SCH ×2 (09:40→11:30)
[2020-03-29] MEDS ORDERED: Bupivacaine 0.5% 30 ML SDV INJECT ONE (11:28)
[2020-03-29] MEDS ORDERED: Lidocaine 1% with EPINEPHrine 1:100,000 20 ML MDV INJECT ONE (11:28)
[2020-03-29] MEDS ORDERED: Acetaminophen/HYDROcodone 325-5 MG Tab PO PRN (12:07)
--- NOTE | 2020-03-29 12:07 | PCM.OPNOTE ---
- General Post-Op/Procedure Note Date of Surgery/Procedure: 03/29/20 Operative Procedure(s): lih repair with mesh Findings: direct inguinal hernia Pre Op Diagnosis: lih Post-Op Diagnosis: direct inguinal hernia Anesthesia Technique: General LMA, Local (8 ml 1 % lido with epi/0.5% buvipicaine) Primary Surgeon: Arias Quesada Anesthesia Provider: Medardo Granados Pathology: none Complications: None Condition: Good Free Text/Narrative:: see dictation
[2020-03-29] MEDS ORDERED: HYDROmorphone 2 MG/ML SDV IVPUSH ONE (12:49)
--- NOTE | 2020-03-29 13:21 | OR ---
DATE OF OPERATION: 03/29/2020 SURGEON: Arias Quesada MD PROCEDURE PERFORMED: Left inguinal hernia repair with mesh plug patch. PREOPERATIVE DIAGNOSIS: Left inguinal hernia without obstruction or gangrene. POSTOPERATIVE DIAGNOSIS: Left inguinal hernia without obstruction or gangrene. INDICATIONS FOR PROCEDURE: This is a 44-year-old white male with symptomatic left inguinal hernia. He was offered and accepted repair. INTRAOPERATIVE FINDINGS: As follows: A direct inguinal hernia was noted. This was fixed with a Phasix plug and patch, size large, lot number [id number], reference number [id number] with an expiration date of 01/12/2021 and it was also fixed into position with an OptiFix absorbable fixation system, lot number [id number], reference number [id number] with an expiration date of 10/14/2021. 8 mL of local mixture was also used for local control. DESCRIPTION OF OPERATION: After an excellent LMA anesthetic was administered, the patient was prepped and draped in usual sterile manner. A local skin wheal was made just 1 cm medial to the anterior-superior iliac spine. A deep intramuscular injection was then carried out using our local. The local was then used to go along the planned incision site, and an incision was made with a #15 scalpel blade. The underlying subcu fat was divided using electrocautery. Superficial inferior epigastric vessels were clamped, divided, and tied with 2-0 Vicryl ties. The aponeurosis of the external oblique was exposed, and more local was injected underneath the aponeurosis. Stab incision was in the external oblique and carried out through the external ring. The two leaves of the aponeurosis were controlled with clamps, and the cord was then mobilized and controlled with 1-inch [place] drain. The cord was skeletonized. A large cord lipoma was dissected free from the cord. This was clamped, divided, and tied after transecting the base with a 2-0 Vicryl tie. A direct inguinal hernia was noted. The Phasix plug was then inserted in the defect and tacked into position using interrupted 2-0 Vicryl. The overlay mesh was then cut to size and the keyhole was trimmed vertically and sewn inferiorly starting at the symphysis pubis and out lateral to the internal ring using a 2-0 Vicryl. The keyhole was closed with a running 2-0 Vicryl as well. The aponeurosis was closed with a running 3-0 Vicryl, 3-0 Vicryl was used to approximate Jimbo's fascia, and marcus were used to close the skin. Needle, sponge, and instrument counts were reported as correct. The patient was taken to recovery room in good condition. /[id number] /MODL
== END 2020-03-29 14:20 | disposition home or self-care (01) ==
LOC: FB.SDS 08:58
PROVIDERS: ATTEND Surgery
DX: K40.90 Unilateral inguinal hernia, without obstruction or gangrene, not specified as recurrent (principal); D17.6 Benign lipomatous neoplasm of spermatic cord; I10 Essential (primary) hypertension; K21.9 Gastro-esophageal reflux disease without esophagitis; F41.9 Anxiety disorder, unspecified; J45.909 Unspecified asthma, uncomplicated; F32.9 Major depressive disorder, single episode, unspecified; Z79.899 Other long term (current) drug therapy; Z87.891 Personal history of nicotine dependence
CPT/HCPCS: 00830-QZ; 94150; A9270-GY; C1713; C1781; J0690; J1100; J1170; J1885; J2250; J2405; J2704; J3010; J3490; J7050; J7120

== ENCOUNTER 2021-09-25 14:22 | Emergency (ER) | payer BC, OTHER ==
[2021-09-25] MEDS ORDERED: Cyclobenzaprine 10 MG Tab PO ONE (14:43)
[2021-09-25] MEDS ORDERED: Diazepam 5 MG Tab PO ONE (14:44)
--- NOTE | 2021-09-25 14:53 | EDM.PDOC ---
ED HPI GENERAL MEDICAL PROBLEM - General Chief Complaint: General Stated Complaint: LEFT SHOULDER BACK PAIN Time Seen by Provider: 09/25/21 14:35 Source of Information: Reports: Patient, Old Records, RN History Limitations: Reports: No Limitations - History of Present Illness INITIAL COMMENTS - FREE TEXT/NARRATIVE: 45 yo male was moving heavy things like snowmobiles and trailers around in his garage a few days ago in his garage. Since then he has experienced tightness in his L upper back. He his taking topical Aspercreme, oral ibuprofen and acetaminophen without relief. He needs a note for work tomorrow as he has already used up his allowed sick days before today's visit. He does have a ride. It does hurt to turn his head to the left only. No numbness or weakness of his L arm. Onset: Gradual Onset Date: 09/21/21 Duration: Day(s):, Constant Location: Reports: Back Quality: Reports: Ache, Burning Severity: Severe Improves with: Reports: Rest Worsens with: Reports: Movement Context: Reports: Other (see HPI) Associated Symptoms: Reports: No Other Symptoms Treatments CARDIOLOGY MANAGER: Reports: Acetaminophen, NSAIDS - Related Data Allergies Allergy/AdvReac Type Severity Reaction Status Date / Time grass pollen Allergy Body Aches Verified 09/25/21 14:40 weed pollen Allergy Other Verified 09/25/21 14:40 DUST MITE Allergy Rash Uncoded 09/25/21 14:40 Home Meds: Home Meds Albuterol Sulfate [Albuterol Sulfate Hfa] 2 puff IH Q4H PRN 11/03/19 [History] Cetirizine [ZyrTEC] 20 mg PO DAILY 11/03/19 [History] FLUoxetine HCl [Prozac] 60 mg PO DAILY 11/03/19 [History] Fluticasone Propionate [Flonase] 2 spray NS DAILY 11/03/19 [History] Omeprazole Magnesium [Prilosec Otc] 40 mg PO DAILY PRN 11/03/19 [History] Docusate Sodium [Colace] 100 mg PO BID #20 capsule 11/04/19 [Rx] Fexofenadine HCl [Peyton Allergy] 60 mg PO DAILY PRN 11/04/19 [History] Celecoxib [CeleBREX] 200 mg PO BID #10 cap 11/08/19 [Rx] diazePAM [Valium.] 5 mg PO TID PRN #9 tablet 11/08/19 [Rx] Ciprofloxacin HCl [Cipro] 500 mg PO BID 03/26/20 [History] Acetaminophen/HYDROcodone [[place] 325-5 MG] 1 - 2 tab PO Q6H PRN #12 tab 03/29/20 [Rx] Celecoxib [CeleBREX] 200 mg PO BID #10 cap 03/29/20 [Rx] Cyclobenzaprine [Flexeril] 10 mg PO TID #15 tab 09/25/21 [Rx] Past Medical History HEENT History: Reports: Epistaxis Other HEENT History: PHARYNGITIS, DNS, DYSACUSIS, GLOBUS SENSATION, TINNITUS LEFT Cardiovascular History: Reports: High Cholesterol, Hypertension Respiratory History: Reports: Asthma Gastrointestinal History: Reports: GERD, Hemorrhoids, Other (See Below) Other Gastrointestinal History: hemorrhoidectomy nov 04, 2019 Genitourinary History: Reports: Retention, Urinary, Other (See Below) Other Genitourinary History: trouble voiding after surgery Musculoskeletal History: Reports: None Neurological History: Reports: None, Headaches, Chronic Psychiatric History: Reports: Depression Other Psychiatric History: SUBSTANCE ABUSE. depression age 23 is doing well now Endocrine/Metabolic History: Reports: None Hematologic History: Reports: None Dermatologic History: Reports: Psoriasis - Infectious Disease History Infectious Disease History: Reports: Influenza - Past Surgical History Head Surgeries/Procedures: Reports: None HEENT Surgical History: Reports: Oral Surgery Cardiovascular Surgical History: Reports: None Respiratory Surgical History: Reports: None GI Surgical History: Reports: None Male Surgical History: Reports: Circumcision Endocrine Surgical History: Reports: None Neurological Surgical History: Reports: None Musculoskeletal Surgical History: Reports: Ganglion Cyst Other Musculoskeletal Surgeries/Procedures:: MORTONS NEUROMA EXCISION Dermatological Surgical History: Reports: Skin Biopsy, Other (See Below) Social & Family History - Family History Family Medical History: No Pertinent Family History - Caffeine Use Caffeine Use: Reports: Coffee, Soda ED ROS GENERAL - Review of Systems Review Of Systems: See Below Constitutional: Reports: No Symptoms HEENT: Reports: No Symptoms Respiratory: Reports: No Symptoms Cardiovascular: Reports: No Symptoms GI/Abdominal: Reports: No Symptoms Musculoskeletal: Reports: Back Pain (L upper) Skin: Reports: No Symptoms Neurological: Reports: No Symptoms ED EXAM, UPPER BACK/NECK PAIN - Physical Exam Exam: See Below Exam Limited By: No Limitations General Appearance: Alert, WD/WN, No Apparent Distress Eye Exam: Bilateral Eye: Normal Inspection Ears Exam: Normal External Exam, Hearing Grossly Normal Nose Exam: Normal Inspection Head Exam: Atraumatic Neck Exam: Limited Range of Motion (to the left), Paraspinous Muscle Tender (L posterior neck), Stiff Neck, Tenderness (L posterior neck). No: Spinous Processes Tender, Tender Midline Nexus Criteria: No: Posterior, Midline Cervical Tenderness, Evidence of Intoxication, Altered Level of Consciousness, Focal Neurological Deficit, Painful Distraction Injuries Extremities: Normal Inspection, Normal Range of Motion, Non-Tender, No Pedal Edema Neurologic: educational assistant teacher II-XII nml As Tested, No Motor/Sensory Deficits, Alert, Normal Mood/Affect, Oriented x 3 Psychiatric: Normal Affect, Normal Mood Skin Exam: Normal Color, Warm/Dry Course - Orders/Labs/Meds Orders: Active Orders 24 hr Category Date Time Status diazePAM [Valium.] Med 09/25/21 14:44 Once 10 mg PO ONETIME ONE Medication Orders Diazepam (Diazepam 5 Mg Tab) 10 mg PO ONETIME ONE Stop: 09/25/21 14:45 Meds: Medications Generic Name Dose Route Start Last Admin Trade Name Freq PRN Reason Stop Dose Admin Diazepam 10 mg 09/25/21 14:44 Diazepam 5 Mg Tab PO 09/25/21 14:45 ONETIME ONE Discontinued Medications Generic Name Dose Route Start Last Admin Trade Name Freq PRN Reason Stop Dose Admin Cyclobenzaprine HCl 10 mg 09/25/21 14:43 Cyclobenzaprine 10 Mg Tab PO 09/25/21 14:44 ONETIME ONE Departure - Departure Time of Disposition: 15:10 Disposition: Home, Self-Care 01 Condition: Fair Clinical Impression: Strain of left trapezius muscle Qualifiers: Encounter type: initial encounter Qualified Code(s): S46.812A - Strain of other muscles, fascia and tendons at shoulder and upper arm level, left arm, initial encounter - Discharge Information *PRESCRIPTION DRUG MONITORING PROGRAM REVIEWED*: Not Applicable *COPY OF PRESCRIPTION DRUG MONITORING REPORT IN PATIENT KATE: Not Applicable Instructions: Muscle Strain, [id number] Referrals: Yoni Sherman MD [Primary Care Provider] - Forms: ED Department Discharge Additional Instructions: Moist heat. Massage with Tacos-Puri or similar product. Wear your sling on the left to rest the affected muscles. Avoid lifting with the left hand/arm. Recheck with your provider if not better in a couple days. Consider massage therapy to speed up recovery, but it will most likely be an uncomfortable experience. - My Orders Last 24 Hours: My Active Orders 09/25/21 14:44 diazePAM [Valium.] 10 mg PO ONETIME ONE - Assessment/Plan Last 24 Hours: My Active Orders 09/25/21 14:44 diazePAM [Valium.] 10 mg PO ONETIME ONE
== END 2021-09-25 16:35 | disposition home or self-care (01) ==
LOC: FB.ED 14:22
DX: S46.812A Strain of other muscles, fascia and tendons at shoulder and upper arm level, left arm, initial encounter (principal); I10 Essential (primary) hypertension; J45.909 Unspecified asthma, uncomplicated; K21.9 Gastro-esophageal reflux disease without esophagitis; Z91.048 Other nonmedicinal substance allergy status; Z79.899 Other long term (current) drug therapy; X50.0XXA Overexertion from strenuous movement or load, initial encounter
CPT/HCPCS: 99283; A9270-GY

== ENCOUNTER 2021-11-28 07:15 | Day surgery (SDC) | payer BC, OTHER ==
[2021-11-28] MEDS ORDERED: Lidocaine 2% 100 MG/5 ML Syringe IVPUSH ONE (07:16)
[2021-11-28] MEDS ORDERED: Propofol 200 MG/20 ML SDV IV ONE (07:16)
== END 2021-11-28 10:32 | disposition home or self-care (01) ==
LOC: FB.SDS 07:15
PROVIDERS: ATTEND Surgery
DX: K21.9 Gastro-esophageal reflux disease without esophagitis (principal); K44.9 Diaphragmatic hernia without obstruction or gangrene; E78.00 Pure hypercholesterolemia, unspecified; H54.7 Unspecified visual loss; I10 Essential (primary) hypertension; J45.909 Unspecified asthma, uncomplicated; E66.9 Obesity, unspecified; Z68.37 Body mass index [BMI] 37.0-37.9, adult; Z91.048 Other nonmedicinal substance allergy status; Z98.890 Other specified postprocedural states; Z79.51 Long term (current) use of inhaled steroids; Z79.899 Other long term (current) drug therapy; Z87.891 Personal history of nicotine dependence
CPT/HCPCS: 00731-QZ; J2704; J7120

== ENCOUNTER 2022-05-18 20:06 | Emergency (ER) | payer OTHER | END 2022-05-18 21:00 | disposition home or self-care (01) | LOC: FB.ED 20:06 | DX: S01.511A Laceration without foreign body of lip, initial encounter (principal); I10 Essential (primary) hypertension; F32.A Depression, unspecified; K21.9 Gastro-esophageal reflux disease without esophagitis; Z79.899 Other long term (current) drug therapy; E66.9 Obesity, unspecified; Z91.048 Other nonmedicinal substance allergy status; W22.8XXA Striking against or struck by other objects, initial encounter | CPT/HCPCS: 12011; 99282 ==

== ENCOUNTER 2024-03-10 21:18 | Emergency (ER) | payer OTHER | END 2024-03-10 23:45 | disposition home or self-care (01) | LOC: FB.ED 21:18 | DX: S67.21XA Crushing injury of right hand, initial encounter (principal); S60.221A Contusion of right hand, initial encounter; I10 Essential (primary) hypertension; J45.909 Unspecified asthma, uncomplicated; K21.9 Gastro-esophageal reflux disease without esophagitis; E66.9 Obesity, unspecified; Z68.36 Body mass index [BMI] 36.0-36.9, adult; Z91.048 Other nonmedicinal substance allergy status; Z79.899 Other long term (current) drug therapy; W23.0XXA Caught, crushed, jammed, or pinched between moving objects, initial encounter | CPT/HCPCS: 73130-RT; 99283 ==

== ENCOUNTER 2025-02-26 07:59 | Day surgery (SDC) | payer OTHER ==
[2025-02-26] MEDS ORDERED: Sodium Chloride 0.9% 10 ML Syringe FLUSH PRN (08:00)
[2025-02-26] MEDS ORDERED: Lidocaine 2% 5 ML SDV ONE (08:00)
[2025-02-26] MEDS ORDERED: Propofol 200 MG/20 ML SDV IV ONE (08:00)
[2025-02-26] MEDS ORDERED: Ketamine 500 mg/10 ML MDV IV ONE (08:00)
[2025-02-26] MEDS ORDERED: Midazolam 1 MG/ML 2 ML SDV IV ONE (08:00)
[2025-02-26] MEDS ORDERED: Lidocaine 2% 100 MG/5 ML Syringe IVPUSH ONE (08:00)
[2025-02-26] MEDS: Lactated Ringers 1,000 ML IV SCH (08:59)
== END 2025-02-26 10:40 | disposition home or self-care (01) ==
LOC: FB.SDS 07:59
PROVIDERS: ATTEND Surgery
DX: K21.00 Gastro-esophageal reflux disease with esophagitis, without bleeding (principal); K44.9 Diaphragmatic hernia without obstruction or gangrene; K42.0 Umbilical hernia with obstruction, without gangrene; K40.90 Unilateral inguinal hernia, without obstruction or gangrene, not specified as recurrent; J45.909 Unspecified asthma, uncomplicated; F32.A Depression, unspecified; Z79.899 Other long term (current) drug therapy; Z91.048 Other nonmedicinal substance allergy status
CPT/HCPCS: 00731; 88305; J2003; J2250; J2704; J3490; J7120